=== PATIENT | female | born 2000 | race Caucasian/White ===

== ENCOUNTER 2021-02-20 00:10 | Emergency (ER) | payer MEDICAID ==
[~2021-02-20] VITALS: Ht 162.6 cm; Wt 68.0 kg
[2021-02-20 00:18] VITALS: BP 108/63
[2021-02-20 01:51] LABS: URINE HCG NEGATIVE (NEG)
[2021-02-20 02:00] LABS: CLARITY,URINE CLOUDY (Clear); GLUCOSE, URINE NEGATIVE (Neg); KETONES,URINE NEGATIVE (Neg); LEUKOCYTE ESTERASE ,URINE NEGATIVE (Neg); OCCULT BLOOD,URINE LARGE (Neg); PROTEIN,URINE 100 mg/dl (Neg); UA COLLECTION TYPE CLN CATCH MIDSTREAM
[2021-02-20 02:02] LABS: COLOR,URINE AMBER (Yellow); NITRITES, URINE NEGATIVE (Neg)
[2021-02-20 02:03] LABS: BACTERIA,URINE FEW /HPF (Neg); RBC,URINE 50-100 /HPF (0-2); WBC,URINE 0-4 /HPF (0-4)
[2021-02-20 02:04] LABS: MUCUS STRANDS FEW /LPF (Neg); SQUAMOUS EPITHELIAL CELL,UR FEW /LPF (FEW)
== END 2021-02-20 02:32 | disposition home or self-care (01) ==
LOC: ER 00:11
DX: R10.2 Pelvic and perineal pain (principal); R10.30 Lower abdominal pain, unspecified; M54.5 Low back pain; O72.1 Other immediate postpartum hemorrhage; Z87.440 Personal history of urinary (tract) infections
CPT/HCPCS: 81001; 81025; 99283

== ENCOUNTER 2021-04-20 21:58 | Emergency (ER) | payer MEDICAID ==
[~2021-04-20] VITALS: Ht 162.6 cm; Wt 68.2 kg
[2021-04-20 22:16] VITALS: BP 123/73
[2021-04-20] MEDS ORDERED: PENI250T2 PO (23:31)
[2021-04-20] MEDS ORDERED: HYDR-3965 PO (23:31)
[2021-04-20] MEDS ORDERED: NAPR-56 PO (23:31)
== END 2021-04-20 23:37 | disposition home or self-care (01) ==
LOC: ER 21:58
DX: K00.6 Disturbances in tooth eruption (principal); K08.89 Other specified disorders of teeth and supporting structures; K12.0 Recurrent oral aphthae; Z79.2 Long term (current) use of antibiotics; Z79.899 Other long term (current) drug therapy
CPT/HCPCS: 99283

== ENCOUNTER 2021-12-25 05:20 | Emergency (ER) | payer MEDICAID ==
[~2021-12-25] VITALS: Ht 162.6 cm; Wt 59.1 kg
[2021-12-25] MEDS ORDERED: ketorolac trometh inj. 60 MG/2 ML VIAL IM ONE (05:50)
[2021-12-25] MEDS ORDERED: ibuprofen tablet 400 MG TABLET PO ONE (05:50)
[2021-12-25 06:31] LABS: BASOPHILS # (AUTO) 0.1 X10'3 (0-0.2); BASOPHILS % (AUTO) 0.4 % (0-1); EOSINOPHILS # (AUTO) 0.4 X10'3 (0-0.9); EOSINOPHILS % (AUTO) 3.3 % (0-6); HEMATOCRIT 33.3 % (35.0-45.0); HEMOGLOBIN 10.6 g/dl (12.0-16.0); LYMPHOCYTES # (AUTO) 2.2 X10'3 (1.1-4.8); LYMPHOCYTES % (AUTO) 18.2 % (21-51); MEAN CORPUSCULAR HEMOGLOBIN 22.2 PG (27.0-31.0); MEAN CORPUSCULAR HGB CONC 31.7 g/dL (33.0-36.5); MEAN CORPUSCULAR VOLUME 70.1 FL (78-98); MEAN PLATELET VOLUME 7.8 FL (7.4-10.4); MONOCYTES % (AUTO) 8.6 % (2-12); NEUTROPHILS # (AUTO) 8.4 X10'3 (1.8-7.7); NEUTROPHILS % (AUTO) 69.5 % (42-75); PLATELET COUNT 388 X10'3 (140-440); RED BLOOD COUNT 4.75 X10'6 (4.20-5.60); RED CELL DISTRIBUTION WIDTH 18.2 % (11.5-14.5); WHITE BLOOD COUNT 12.1 X10'3 (4.5-11.0)
[2021-12-25 06:32] LABS: ALANINE AMINOTRANSFERASE 25 U/L (12-78); ALBUMIN 2.5 G/DL (3.4-5.0); ALBUMIN/GLOBULIN RATIO 0.6 (1.1-1.5); ALKALINE PHOSPHATASE 128 IU/L (46-116); ANION GAP 11 (8-16); BILIRUBIN,TOTAL 0.5 MG/DL (0.1-1.0); BLOOD UREA NITROGEN 9 MG/DL (7-18); BUN/CREATININE RATIO 16.7 (6.6-38.0); CALCIUM 9.3 MG/DL (8.5-10.1); CHLORIDE 105 MMOL/L (99-107); CREATININE 0.54 MG/DL (0.40-0.90); GLUCOSE 81 MG/DL (70-104); SODIUM 138 MMOL/L (135-145); TOTAL CARBON DIOXIDE 22.3 MMOL/L (24-32); eGFR > 90 ML/MIN
[2021-12-25 06:34] LABS: ASPARTATE AMINO TRANSFERASE 36 U/L (10-37); POTASSIUM 4.5 MMOL/L (3.5-5.1)
[2021-12-25] MEDS ORDERED: CEPH250T PO (08:19)
[2021-12-25] MEDS ORDERED: cephalexin 250mg capsule PO ONE (08:20)
== END 2021-12-25 08:40 | disposition home or self-care (01) ==
LOC: ER 05:21
DX: N64.4 Mastodynia (principal); Z79.2 Long term (current) use of antibiotics
CPT/HCPCS: 36415; 80053; 85025; 99283

== ENCOUNTER 2022-06-05 18:51 | Emergency (ER) | payer MEDICAID ==
[~2022-06-05] VITALS: Ht 162.6 cm; Wt 63.6 kg
[2022-06-05 19:07] VITALS: BP 104/68
[2022-06-05] MEDS ORDERED: colchicine 0.6mg tablet PO ONE (19:55)
[2022-06-05] MEDS ORDERED: COLC0.6T72 PO (21:35)
== END 2022-06-05 22:19 | disposition home or self-care (01) ==
LOC: ER 18:53
DX: M79.675 Pain in left toe(s) (principal)
CPT/HCPCS: 73630; 99283

== ENCOUNTER 2022-12-11 13:16 | Emergency (ER) | payer MEDICAID ==
[~2022-12-11] VITALS: Ht 162.6 cm; Wt 67.7 kg
[~2022-12-11 13:16] MED LIST: COLC0.6T72 PO
[2022-12-11] MEDS ORDERED: AMOX-117 PO (15:26)
[2022-12-11 15:43] VITALS: BP 121/77
== END 2022-12-11 15:45 | disposition home or self-care (01) ==
LOC: ER 13:17
DX: H66.92 Otitis media, unspecified, left ear (principal); I88.9 Nonspecific lymphadenitis, unspecified
CPT/HCPCS: 99283

== ENCOUNTER 2023-06-02 14:47 | Emergency (ER) | payer MEDICAID ==
[~2023-06-02] VITALS: Ht 152.4 cm; Wt 73.8 kg
[2023-06-02] MEDS ORDERED: NAPR-56 PO (17:31)
[2023-06-02 17:48] VITALS: BP 111/80; PULSE 69; RESP 16; TEMP 97.9; O2SAT 100
--- NOTE | 2023-06-02 18:41 | NUR ---
I AGREE WITH THE ASSESSMENT PER Jossie ROACH.
== END 2023-06-02 17:50 | disposition home or self-care (01) ==
LOC: ER 14:47
DX: S93.402A Sprain of unspecified ligament of left ankle, initial encounter (principal); Z79.899 Other long term (current) drug therapy; X58.XXXA Exposure to other specified factors, initial encounter; Y93.89 Activity, other specified; Y92.89 Other specified places as the place of occurrence of the external cause; Y99.8 Other external cause status
CPT/HCPCS: 73600; 73620; 99284

== ENCOUNTER 2025-05-06 10:25 | Emergency (ER) | payer MEDICAID ==
[~2025-05-06] VITALS: Ht 162.6 cm; Wt 68.2 kg
[2025-05-06 10:33] VITALS: TEMP 98.4
[2025-05-06 13:33] VITALS: BP 140/78; PULSE 77; O2SAT 98
[2025-05-06 13:34] VITALS: RESP 18
--- NOTE | 2025-05-06 15:01 | Physician Documentation ---
History of Present Illness ~ Chief Complaint: Dizziness Stated Complaint: MULTIPLE MED COMPLAINTS Time Seen by MD: 13:51 Primary Medical Doctor: KANG MARIE Mode of Arrival: POV HPI 14 week IUP 24 y/o female presents to the emergency department with episodes of dizziness and anxiousness associated with upper extremity numbness and tingling. Symptoms have been waxing and waning for some time. She is having difficulty receiving continuity care with your primary care provider. She is quite frustrated. Additionally has a scalp lesion which has been present for three years and she has been told this may be the trigger tension-like headaches. She is unable to take medications due to . Recently had x-ray imaging done of the T-spine and C-spine which showed some suspected disc pathology. She has not had follow up imaging. She obviously is not a candidate for CT imaging. She wonders if she may obtain an MRI in the emergency department today. Medication Reconciliation Allergies: Coded Allergies: No Known Allergies (Unverified , 05/06/25) Scheduled PRN Colchicine (Colchicine), 2 TAB PO Q8H PRN for pain Past Medical History Past Medical History: No Pertinent History Past Surgical History: noncontributory Alcohol Use: None Drug Use: none Lives In: Home Review of Systems All Other Systems at this time: Reviewed and Negative Neurological: Reports: dizziness Integumentary: Reports: other (scalp lesion) Psychiatric: Reports: anxiety Physical Exam Vital Signs: Temperature: 98.4, Source: Temporal, Heart Rate: 77, Respiratory Rate: 18, BP: 140/78, Pulse Oximetry: 98, Weight: 68.180 Oxygen Flow Rate: 0 General Appearance: alert, WD/WN General Appearance She is upset Head: normal, other (1 x 1 raised firm nodule to the left posterior parietal occipital scalp) Pupils/EOM/Fundus: PERRLA, EOM intact; No: nystagmus, papilledema (R), papilledema (L) EENT: normal ENT inspection Ear: normal Respiratory: lungs clear, normal breath sounds Chest: no accessory muscle use Cardiovascular: normal peripheral pulses Skin: warm/dry Orientation / Memory / CN: oriented x3 Motor / Sensory: no motor deficit, no sensory deficit Cerebellar Function: normal Psych: appropriate Progress Results/Orders Results/Orders Vital Signs 05/06/25 05/06/25 05/06/25 10:33 13:33 13:34 Temp 98.4 Pulse 114 77 Resp 16 18 18 B/P (MAP) 128/67 140/78 (98) Pulse Ox 99 98 O2 Flow Rate 0 Medical Decision Making Additional Information 24-year-old female 14 week IUP not a candidate for any CT imaging. She likely would however benefit for nonemergent MRI imaging of the thoracic spine to evaluate for other things such as syrinx, disc pathology in cervical spine and head. No clinical suspicion for multiple sclerosis, posterior stroke and/or autoimmune. No clinical suspicion that the scalp lesion that is non fluctuant is a contributing factor. Shared decision-making comforting discussion with the patient who feels reassured with the next course of action. Under discharge instructions are indications to her primary care physician in his consider outpatient MRI, Dermatology referral for consideration of excision/pathology and he will be scheduled follow up. Patient is comforted in reassures me that she has been taking her vitamins. No benefit from laboratory screening today. Patient's safely discharged in the emergency department while oriented stable vital signs, steady gait without neuro focal deficits very pleased with her visit with work note. Departure Disposition: HOME / SELF CARE / HOMELESS Impression: Primary Impression: Dizziness Additional Impressions: Qualified Codes: Z3A.14 - 14 weeks gestation of Scalp lesion Additional Instructions: 1. Please follow up with the primary care physician for consideration of MRI to include Head, Neck and T-spine. No clear indication for Emergent MRI needed today. 2. Patient is not a candidate for CT imaging due to her and it is not the best imaging of choice. 3. Please have your Primary care Physician refer you to Dermatology regarding your persistent scalp lesion for consideration of excision/pathology. 4. Continue with your vitamins and keep all scheduled OB appointments. Please return to the Emergency department in the interim as needed. Thank you for visiting emergency department [facility]. Referrals: NO PRIMARY CARE PROVIDER (PCP) Education Educated: Patient Educated regarding: diagnosis Signature Scribe Signature: . Attestation: RAMO DOWNS PAC May 06, 2025 15:01
== END 2025-05-06 15:18 | disposition home or self-care (01) ==
LOC: ER 10:27
DX: O26.892 Other specified pregnancy related conditions, second trimester (principal); R42 Dizziness and giddiness; L98.8 Other specified disorders of the skin and subcutaneous tissue; Z3A.14 14 weeks gestation of pregnancy
CPT/HCPCS: 99282